=== PATIENT | female | born 1955 | race Native Hawaiian/Other Pacific Islander ===

== ENCOUNTER 2017-08-08 09:42 | Outpatient (CLI) | payer OTHER | END 2017-08-08 19:03 | disposition home or self-care (01) | LOC: MAMMO 09:42 | DX: Z12.31 Encounter for screening mammogram for malignant neoplasm of breast (principal) ==

== ENCOUNTER 2018-02-03 11:45 | Outpatient (CLI) | payer OTHER | END 2018-02-03 23:01 | disposition home or self-care (01) | LOC: RAD 11:45 | DX: M25.552 Pain in left hip (principal); M25.551 Pain in right hip ==

== ENCOUNTER 2018-05-02 09:20 | Outpatient (CLI) | payer OTHER ==
[2018-05-02 10:03] LABS: POTASSIUM 4.2 mmol/L (3.6-5.2)
== END 2018-05-02 22:15 | disposition home or self-care (01) ==
LOC: LABW 09:20
PROVIDERS: Internal Medicine
DX: E78.4 Other hyperlipidemia (principal); D51.8 Other vitamin B12 deficiency anemias; Z79.899 Other long term (current) drug therapy; Z51.81 Encounter for therapeutic drug level monitoring; E88.81 Metabolic syndrome and other insulin resistance
CPT/HCPCS: 36415; 80048; 80061; 82306; 82550; 82607; 82746; 84443

== ENCOUNTER 2018-11-02 11:17 | Outpatient (CLI) | payer OTHER | END 2018-11-02 21:44 | disposition home or self-care (01) | LOC: RAD 11:17 | DX: J40 Bronchitis, not specified as acute or chronic (principal); R05 Cough ==

== ENCOUNTER 2019-02-23 10:32 | Outpatient (CLI) | payer OTHER | END 2019-02-23 19:45 | disposition home or self-care (01) | LOC: MAMMO 10:32 | DX: Z12.31 Encounter for screening mammogram for malignant neoplasm of breast (principal) ==

== ENCOUNTER 2019-03-27 15:31 | Outpatient (CLI) | payer OTHER | END 2019-03-27 21:19 | disposition home or self-care (01) | LOC: RAD 15:31 | DX: Z13.820 Encounter for screening for osteoporosis (principal); N95.8 Other specified menopausal and perimenopausal disorders ==

== ENCOUNTER 2019-07-23 13:17 | Outpatient (CLI) | payer OTHER | END 2019-07-23 22:40 | disposition home or self-care (01) | LOC: CT 13:17 | DX: R10.31 Right lower quadrant pain (principal) | CPT/HCPCS: 36415; 82565; 84520; Q9963 ==

== ENCOUNTER 2019-10-08 11:41 | Observation (INO) | payer OTHER ==
[~2019-10-08] VITALS: Ht 165.1 cm; Wt 99.8 kg
[2019-10-08 11:46] VITALS: BP 160/66
[2019-10-08 12:02] LABS: PLATELET COUNT 260 K/uL (152-353)
[2019-10-08] MEDS ORDERED: ASPIRIN LOW81 MG PO (12:02)
[2019-10-08] MEDS ORDERED: AMLO2.5T PO (12:02)
[2019-10-08] MEDS ORDERED: METO-837 PO (12:02)
[2019-10-08] MEDS ORDERED: METF500T PO (12:03)
[2019-10-08] MEDS ORDERED: PEPCID40 MG PO (12:03)
[2019-10-08] MEDS ORDERED: LIPITOR80 MG PO (12:03)
[2019-10-08] MEDS ORDERED: TRAZODONE HYDRO50 MG PO (12:04)
[2019-10-08 12:08] LABS: POTASSIUM 4.5 mmol/L (3.6-5.2); SODIUM 142 mmol/L (136-145)
[2019-10-08 12:15] LABS: PARTIAL THROMBOPLASTIN TIME 22.4 SECONDS (24.5-33.6)
[2019-10-08 12:30] VITALS: BP 160/99
[2019-10-08 13:00] VITALS: BP 176/89
[2019-10-08 13:30] VITALS: BP 164/79
[2019-10-08 14:00] VITALS: BP 171/80
[2019-10-08 15:10] VITALS: BP 137/70; TEMP 98.1; Ht 165.1 cm; Wt 99.8 kg
== END 2019-10-08 20:14 | disposition short-term general hospital (02) ==
LOC: ED 11:41 → MED/SURG 13:15
PROVIDERS: ADMIT Emergency Medicine Emergency Medical Services
DX: R07.89 Other chest pain (principal); I25.10 Atherosclerotic heart disease of native coronary artery without angina pectoris; I10 Essential (primary) hypertension; E78.00 Pure hypercholesterolemia, unspecified; E11.9 Type 2 diabetes mellitus without complications; K21.9 Gastro-esophageal reflux disease without esophagitis; Z95.1 Presence of aortocoronary bypass graft; I25.2 Old myocardial infarction
CPT/HCPCS: 36415; 80053; 81000; 82550; 84484; 85027; 85379; 85610; 85730; 93005; 96374; 99220; 99284; G0378; J1650; J2270; J2405; J3490

== ENCOUNTER 2019-10-08 19:48 | Outpatient (CLI) | payer OTHER ==
[~2019-10-08 19:48] MED LIST: AMLO2.5T PO; ASPIRIN LOW81 MG PO; LIPITOR80 MG PO; METF500T PO; METO-837 PO; PEPCID40 MG PO; TRAZODONE HYDRO50 MG PO
== END 2019-10-08 20:19 | disposition short-term general hospital (02) ==
LOC: AMB 19:48
DX: R94.31 Abnormal electrocardiogram [ECG] [EKG] (principal); R07.89 Other chest pain
CPT/HCPCS: A0425; A0427

== ENCOUNTER 2019-10-12 11:10 | Outpatient (CLI) | payer OTHER ==
[2019-10-12 11:37] LABS: POTASSIUM 4.5 mmol/L (3.6-5.2)
== END 2019-10-12 22:06 | disposition home or self-care (01) ==
LOC: LABW 11:10
PROVIDERS: Nurse Practitioner Adult Health
DX: I25.10 Atherosclerotic heart disease of native coronary artery without angina pectoris (principal); Z79.899 Other long term (current) drug therapy
CPT/HCPCS: 36415; 80048

== ENCOUNTER 2019-10-23 21:37 | Emergency (ER) | payer OTHER ==
[~2019-10-23] VITALS: Ht 167.6 cm; Wt 99.8 kg
[2019-10-23 21:41] VITALS: TEMP 98.8
[2019-10-23] MEDS ORDERED: COZAAR100 MG PO (21:56)
[2019-10-23] MEDS ORDERED: PANTOPRAZOLE 40MG TA PO (21:56)
[2019-10-23] MEDS ORDERED: CLOP75TA2 PO (21:56)
[2019-10-23 22:18] LABS: PLATELET COUNT 294 K/uL (152-353)
[2019-10-23 22:27] LABS: POTASSIUM 4.2 mmol/L (3.6-5.2); SODIUM 138 mmol/L (136-145)
[2019-10-23 22:39] LABS: PARTIAL THROMBOPLASTIN TIME 22.1 SECONDS (24.5-33.6)
[2019-10-24 00:52] VITALS: BP 121/69
== END 2019-10-24 00:52 | disposition home or self-care (01) ==
LOC: ED 21:37
PROVIDERS: Student in an Organized Health Care Education/Training Program
DX: R07.89 Other chest pain (principal); M54.89 Other dorsalgia; Z98.890 Other specified postprocedural states
CPT/HCPCS: 36415; 80048; 83735; 83880; 84484; 85027; 85610; 85730; 93005; 96374; 96375; 99284; J1885; J2270

== ENCOUNTER 2019-10-24 11:48 | Outpatient (CLI) | payer OTHER ==
[~2019-10-24 11:48] MED LIST changes: +CLOP75TA2 PO; +COZAAR100 MG PO; +PANTOPRAZOLE 40MG TA PO
[2019-10-24 12:14] LABS: POTASSIUM 4.4 mmol/L (3.6-5.2)
[2019-10-24 14:21] LABS: PLATELET COUNT 239 K/uL (152-353)
== END 2019-10-24 21:48 | disposition home or self-care (01) ==
LOC: CT 11:48 → LABW 11:48 → CT 21:48
PROVIDERS: Internal Medicine
DX: R07.89 Other chest pain (principal)
CPT/HCPCS: 36415; 80053; 82150; 83690; 85027; 85651; Q9963

== ENCOUNTER 2019-11-09 08:25 | Outpatient (CLI) | payer OTHER | END 2019-11-09 22:38 | disposition home or self-care (01) | LOC: NM 08:25 | DX: R07.89 Other chest pain (principal) | CPT/HCPCS: A9537 ==

== ENCOUNTER 2020-01-21 18:33 | Emergency (ER) | payer OTHER ==
[~2020-01-21] VITALS: Ht 167.6 cm; Wt 99.8 kg
[2020-01-21 18:35] VITALS: TEMP 98.2
[2020-01-21 21:50] VITALS: BP 148/86
== END 2020-01-21 22:01 | disposition home or self-care (01) ==
LOC: ED 18:33
DX: S39.012A Strain of muscle, fascia and tendon of lower back, initial encounter (principal); V01.00XA Pedestrian on foot injured in collision with pedal cycle in nontraffic accident, initial encounter; Y92.89 Other specified places as the place of occurrence of the external cause
CPT/HCPCS: 96374; 96375; 96376; 99284; J1885; J2270; J2405

== ENCOUNTER 2020-03-26 09:14 | Outpatient (CLI) | payer OTHER | END 2020-03-26 22:22 | disposition home or self-care (01) | LOC: RAD 09:14 | DX: J40 Bronchitis, not specified as acute or chronic (principal) ==

== ENCOUNTER 2020-06-18 13:05 | Outpatient (CLI) | payer OTHER | END 2020-06-18 19:46 | disposition home or self-care (01) | LOC: LAB 13:05 | DX: U07.1 COVID-19 (principal); J40 Bronchitis, not specified as acute or chronic | CPT/HCPCS: 87635; G2023; U0003 ==

== ENCOUNTER 2020-08-26 14:30 | Outpatient (CLI) | payer OTHER ==
[2020-08-26 14:52] LABS: PLATELET COUNT 294 K/uL (152-353)
[2020-08-26 15:15] LABS: POTASSIUM 4.8 mmol/L (3.6-5.2)
== END 2020-08-26 19:14 | disposition home or self-care (01) ==
LOC: LAB 14:30
PROVIDERS: Internal Medicine
DX: Z00.00 Encounter for general adult medical examination without abnormal findings (principal); I25.10 Atherosclerotic heart disease of native coronary artery without angina pectoris; Z79.899 Other long term (current) drug therapy; Z13.820 Encounter for screening for osteoporosis; E55.9 Vitamin D deficiency, unspecified
CPT/HCPCS: 80053; 80061; 81000; 82043; 82306; 82570; 83036; 84439; 84443; 85027

== ENCOUNTER 2020-09-02 09:30 | Outpatient (CLI) | payer OTHER | END 2020-09-02 22:29 | disposition home or self-care (01) | LOC: MAMMO 09:30 | DX: Z12.31 Encounter for screening mammogram for malignant neoplasm of breast (principal) ==

== ENCOUNTER 2021-01-05 08:38 | Outpatient (CLI) | payer OTHER ==
[2021-01-05 09:30] LABS: PLATELET COUNT 247 K/uL (152-353)
[2021-01-05 09:34] LABS: POTASSIUM 4.3 mmol/L (3.6-5.2)
== END 2021-01-05 19:20 | disposition home or self-care (01) ==
LOC: LABW 08:38
PROVIDERS: ATTEND Internal Medicine Endocrinology, Diabetes & Metabolism
DX: E11.65 Type 2 diabetes mellitus with hyperglycemia (principal); E55.9 Vitamin D deficiency, unspecified; E53.8 Deficiency of other specified B group vitamins
CPT/HCPCS: 36415; 80053; 80061; 81000; 82306; 82607; 83036; 85027

== ENCOUNTER 2021-01-22 12:59 | Outpatient (CLI) | payer OTHER ==
[~2021-01-22] VITALS: Ht 170.2 cm; Wt 104.8 kg
== END 2021-01-22 21:46 | disposition home or self-care (01) ==
LOC: DIABINF 12:59
PROVIDERS: ATTEND Internal Medicine Endocrinology, Diabetes & Metabolism
DX: E11.9 Type 2 diabetes mellitus without complications (principal); Z79.4 Long term (current) use of insulin; I25.10 Atherosclerotic heart disease of native coronary artery without angina pectoris; I10 Essential (primary) hypertension; E78.5 Hyperlipidemia, unspecified; K21.9 Gastro-esophageal reflux disease without esophagitis; E53.8 Deficiency of other specified B group vitamins; E66.9 Obesity, unspecified; M19.90 Unspecified osteoarthritis, unspecified site; Z68.30 Body mass index [BMI] 30.0-30.9, adult; H40.89 Other specified glaucoma; E55.9 Vitamin D deficiency, unspecified
CPT/HCPCS: 82948; 96365; 96366; 96521; 99204; J1718; J1815

== ENCOUNTER 2021-01-23 12:22 | Outpatient (CLI) | payer OTHER ==
[~2021-01-23] VITALS: Ht 170.2 cm; Wt 104.8 kg
== END 2021-01-23 21:39 | disposition home or self-care (01) ==
LOC: DIABINF 12:22
PROVIDERS: ATTEND Internal Medicine Endocrinology, Diabetes & Metabolism
DX: E11.9 Type 2 diabetes mellitus without complications (principal); Z79.4 Long term (current) use of insulin; I25.10 Atherosclerotic heart disease of native coronary artery without angina pectoris; I10 Essential (primary) hypertension; E78.5 Hyperlipidemia, unspecified; K21.9 Gastro-esophageal reflux disease without esophagitis; E66.9 Obesity, unspecified; M19.90 Unspecified osteoarthritis, unspecified site; Z68.30 Body mass index [BMI] 30.0-30.9, adult; E55.9 Vitamin D deficiency, unspecified; H40.10X0 Unspecified open-angle glaucoma, stage unspecified
CPT/HCPCS: 82948; 96365; 96366; 96521; 99214; J1718; J1815

== ENCOUNTER 2021-01-29 12:25 | Outpatient (CLI) | payer OTHER ==
[~2021-01-29] VITALS: Ht 170.2 cm; Wt 104.8 kg
== END 2021-01-29 22:12 | disposition home or self-care (01) ==
LOC: DIABINF 12:25
PROVIDERS: ATTEND Internal Medicine Endocrinology, Diabetes & Metabolism
DX: E11.9 Type 2 diabetes mellitus without complications (principal); Z79.4 Long term (current) use of insulin; I25.10 Atherosclerotic heart disease of native coronary artery without angina pectoris; I10 Essential (primary) hypertension; E78.5 Hyperlipidemia, unspecified; K21.9 Gastro-esophageal reflux disease without esophagitis; L40.8 Other psoriasis; E53.8 Deficiency of other specified B group vitamins; E55.9 Vitamin D deficiency, unspecified; Z68.30 Body mass index [BMI] 30.0-30.9, adult; M19.90 Unspecified osteoarthritis, unspecified site
CPT/HCPCS: 82948; 96365; 96366; 96521; 99214; J1718; J1815

== ENCOUNTER 2021-01-30 07:51 | Outpatient (CLI) | payer OTHER ==
[~2021-01-30] VITALS: Ht 170.2 cm; Wt 104.8 kg
== END 2021-01-30 19:08 | disposition home or self-care (01) ==
LOC: DIABINF 07:51
PROVIDERS: ATTEND Internal Medicine Endocrinology, Diabetes & Metabolism
DX: E11.9 Type 2 diabetes mellitus without complications (principal); Z79.4 Long term (current) use of insulin; I25.10 Atherosclerotic heart disease of native coronary artery without angina pectoris; I10 Essential (primary) hypertension; E78.5 Hyperlipidemia, unspecified; K21.9 Gastro-esophageal reflux disease without esophagitis; L40.8 Other psoriasis; E53.8 Deficiency of other specified B group vitamins; E55.9 Vitamin D deficiency, unspecified; Z68.30 Body mass index [BMI] 30.0-30.9, adult; M19.90 Unspecified osteoarthritis, unspecified site; R21 Rash and other nonspecific skin eruption
CPT/HCPCS: 82948; 96365; 96366; 96521; 99214; J1718; J1815

== ENCOUNTER 2021-02-05 07:52 | Outpatient (CLI) | payer OTHER ==
[~2021-02-05] VITALS: Ht 170.2 cm; Wt 104.8 kg
== END 2021-02-05 19:29 | disposition home or self-care (01) ==
LOC: DIABINF 07:52
PROVIDERS: ATTEND Internal Medicine Endocrinology, Diabetes & Metabolism
DX: E11.9 Type 2 diabetes mellitus without complications (principal); Z79.4 Long term (current) use of insulin; E78.2 Mixed hyperlipidemia; H40.10X0 Unspecified open-angle glaucoma, stage unspecified; K21.9 Gastro-esophageal reflux disease without esophagitis; L40.8 Other psoriasis; I10 Essential (primary) hypertension; I25.10 Atherosclerotic heart disease of native coronary artery without angina pectoris; E55.9 Vitamin D deficiency, unspecified; E53.8 Deficiency of other specified B group vitamins; M19.09 Primary osteoarthritis, other specified site; E66.8 Other obesity; Z68.39 Body mass index [BMI] 39.0-39.9, adult; R21 Rash and other nonspecific skin eruption
CPT/HCPCS: 82948; 96365; 96366; 96521; 99214; J1718; J1815

== ENCOUNTER 2021-02-06 11:43 | Outpatient (CLI) | payer OTHER | END 2021-02-06 21:48 | disposition home or self-care (01) | LOC: LAB 11:43 → CT 11:43 | PROVIDERS: ATTEND Internal Medicine | DX: R31.9 Hematuria, unspecified (principal); R82.81 Pyuria | CPT/HCPCS: 87077; 87086; 87088; 87186 ==

== ENCOUNTER 2021-02-06 11:56 | Outpatient (CLI) | payer OTHER ==
[~2021-02-06] VITALS: Ht 170.2 cm; Wt 104.8 kg
== END 2021-02-06 21:48 | disposition home or self-care (01) ==
LOC: DIABINF 11:56
PROVIDERS: ATTEND Internal Medicine Endocrinology, Diabetes & Metabolism
DX: E11.9 Type 2 diabetes mellitus without complications (principal); Z79.4 Long term (current) use of insulin; E78.2 Mixed hyperlipidemia; H40.10X0 Unspecified open-angle glaucoma, stage unspecified; K21.9 Gastro-esophageal reflux disease without esophagitis; L40.8 Other psoriasis; I10 Essential (primary) hypertension; I25.10 Atherosclerotic heart disease of native coronary artery without angina pectoris; I65.29 Occlusion and stenosis of unspecified carotid artery; E55.9 Vitamin D deficiency, unspecified; E53.8 Deficiency of other specified B group vitamins; M19.09 Primary osteoarthritis, other specified site; E66.8 Other obesity; Z68.39 Body mass index [BMI] 39.0-39.9, adult; N30.01 Acute cystitis with hematuria
CPT/HCPCS: 82948; 96365; 96366; 96521; 99214; J1718; J1815

== ENCOUNTER 2021-02-13 12:07 | Outpatient (CLI) | payer OTHER ==
[~2021-02-13] VITALS: Ht 170.2 cm; Wt 104.8 kg
== END 2021-02-13 19:25 | disposition home or self-care (01) ==
LOC: DIABINF 12:07
PROVIDERS: ATTEND Internal Medicine Endocrinology, Diabetes & Metabolism
DX: E11.9 Type 2 diabetes mellitus without complications (principal); Z79.4 Long term (current) use of insulin; E78.2 Mixed hyperlipidemia; H40.10X0 Unspecified open-angle glaucoma, stage unspecified; K21.9 Gastro-esophageal reflux disease without esophagitis; L40.8 Other psoriasis; I10 Essential (primary) hypertension; I25.10 Atherosclerotic heart disease of native coronary artery without angina pectoris; E55.9 Vitamin D deficiency, unspecified; E53.8 Deficiency of other specified B group vitamins; M15.0 Primary generalized (osteo)arthritis; E66.8 Other obesity; Z68.39 Body mass index [BMI] 39.0-39.9, adult; R21 Rash and other nonspecific skin eruption; I65.29 Occlusion and stenosis of unspecified carotid artery
CPT/HCPCS: 82948; 96365; 96366; 96521; 99214; J1718; J1815

== ENCOUNTER 2021-02-17 12:11 | Outpatient (CLI) | payer OTHER ==
[~2021-02-17] VITALS: Ht 170.2 cm; Wt 104.8 kg
== END 2021-02-17 19:16 | disposition home or self-care (01) ==
LOC: DIABINF 12:11
PROVIDERS: ATTEND Internal Medicine Endocrinology, Diabetes & Metabolism
DX: E11.9 Type 2 diabetes mellitus without complications (principal); Z79.4 Long term (current) use of insulin; E78.2 Mixed hyperlipidemia; H40.10X0 Unspecified open-angle glaucoma, stage unspecified; K21.9 Gastro-esophageal reflux disease without esophagitis; L40.8 Other psoriasis; I10 Essential (primary) hypertension; I25.10 Atherosclerotic heart disease of native coronary artery without angina pectoris; E55.9 Vitamin D deficiency, unspecified; E53.8 Deficiency of other specified B group vitamins; M15.0 Primary generalized (osteo)arthritis; E66.8 Other obesity; Z68.39 Body mass index [BMI] 39.0-39.9, adult; R21 Rash and other nonspecific skin eruption; I65.29 Occlusion and stenosis of unspecified carotid artery
CPT/HCPCS: 82948; 96365; 96366; 96521; 99214; J1718; J1815

== ENCOUNTER 2021-02-23 13:20 | Outpatient (CLI) | payer OTHER | END 2021-02-23 20:51 | disposition home or self-care (01) | LOC: DIABINF 13:20 | PROVIDERS: ATTEND Internal Medicine Endocrinology, Diabetes & Metabolism | DX: E11.9 Type 2 diabetes mellitus without complications (principal); Z79.4 Long term (current) use of insulin; E78.2 Mixed hyperlipidemia; H40.10X0 Unspecified open-angle glaucoma, stage unspecified; K21.9 Gastro-esophageal reflux disease without esophagitis; L40.8 Other psoriasis; I10 Essential (primary) hypertension; I25.10 Atherosclerotic heart disease of native coronary artery without angina pectoris; E55.9 Vitamin D deficiency, unspecified; E53.8 Deficiency of other specified B group vitamins; M15.0 Primary generalized (osteo)arthritis; E66.8 Other obesity; Z68.39 Body mass index [BMI] 39.0-39.9, adult; R21 Rash and other nonspecific skin eruption; I65.29 Occlusion and stenosis of unspecified carotid artery | CPT/HCPCS: 82948; 96365; 96366; 96521; 99214; J1718 ==

== ENCOUNTER 2021-03-20 07:36 | Outpatient (CLI) | payer OTHER ==
[~2021-03-20] VITALS: Ht 170.2 cm; Wt 104.8 kg
== END 2021-03-20 21:46 | disposition home or self-care (01) ==
LOC: DIABINF 07:36
PROVIDERS: ATTEND Internal Medicine Endocrinology, Diabetes & Metabolism
DX: E11.9 Type 2 diabetes mellitus without complications (principal); Z79.4 Long term (current) use of insulin; E78.2 Mixed hyperlipidemia; H40.10X0 Unspecified open-angle glaucoma, stage unspecified; K21.9 Gastro-esophageal reflux disease without esophagitis; L40.8 Other psoriasis; I10 Essential (primary) hypertension; I25.10 Atherosclerotic heart disease of native coronary artery without angina pectoris; E55.9 Vitamin D deficiency, unspecified; E53.8 Deficiency of other specified B group vitamins; M15.0 Primary generalized (osteo)arthritis; E66.8 Other obesity; Z68.39 Body mass index [BMI] 39.0-39.9, adult; R21 Rash and other nonspecific skin eruption; I65.29 Occlusion and stenosis of unspecified carotid artery
CPT/HCPCS: 82948; 96365; 96366; 96521; J1815; J1817

== ENCOUNTER 2021-03-23 12:50 | Outpatient (CLI) | payer OTHER ==
[2021-03-23 13:33] LABS: POTASSIUM 5.2 mmol/L (3.6-5.2)
[2021-03-23 13:37] LABS: PLATELET COUNT 241 K/uL (152-353)
== END 2021-03-23 23:42 | disposition home or self-care (01) ==
LOC: LAB 12:50
PROVIDERS: ATTEND Internal Medicine Endocrinology, Diabetes & Metabolism
DX: E11.9 Type 2 diabetes mellitus without complications (principal); I25.10 Atherosclerotic heart disease of native coronary artery without angina pectoris; K21.9 Gastro-esophageal reflux disease without esophagitis; E55.9 Vitamin D deficiency, unspecified; I10 Essential (primary) hypertension; F51.01 Primary insomnia; E53.8 Deficiency of other specified B group vitamins; F41.8 Other specified anxiety disorders
CPT/HCPCS: 80053; 80061; 83036; 85027

== ENCOUNTER 2021-03-27 07:50 | Outpatient (CLI) | payer OTHER | END 2021-03-27 22:37 | disposition home or self-care (01) | LOC: DIABINF 07:50 | PROVIDERS: ATTEND Internal Medicine Endocrinology, Diabetes & Metabolism | DX: E11.9 Type 2 diabetes mellitus without complications (principal); Z79.4 Long term (current) use of insulin; E78.2 Mixed hyperlipidemia; H40.10X0 Unspecified open-angle glaucoma, stage unspecified; K21.9 Gastro-esophageal reflux disease without esophagitis; L40.8 Other psoriasis; I10 Essential (primary) hypertension; I25.10 Atherosclerotic heart disease of native coronary artery without angina pectoris; E55.9 Vitamin D deficiency, unspecified; E53.8 Deficiency of other specified B group vitamins; M15.0 Primary generalized (osteo)arthritis; E66.8 Other obesity; Z68.39 Body mass index [BMI] 39.0-39.9, adult; R21 Rash and other nonspecific skin eruption; I65.29 Occlusion and stenosis of unspecified carotid artery | CPT/HCPCS: 82948; 96365; 96366; 96521; J1817 ==

== ENCOUNTER 2021-04-03 08:04 | Outpatient (CLI) | payer OTHER ==
[~2021-04-03] VITALS: Ht 170.2 cm; Wt 104.8 kg
== END 2021-04-03 22:16 | disposition home or self-care (01) ==
LOC: DIABINF 08:04
PROVIDERS: ATTEND Internal Medicine Endocrinology, Diabetes & Metabolism
DX: E11.9 Type 2 diabetes mellitus without complications (principal); Z79.4 Long term (current) use of insulin; E78.2 Mixed hyperlipidemia; H40.10X0 Unspecified open-angle glaucoma, stage unspecified; K21.9 Gastro-esophageal reflux disease without esophagitis; L40.8 Other psoriasis; I10 Essential (primary) hypertension; I25.10 Atherosclerotic heart disease of native coronary artery without angina pectoris; E55.9 Vitamin D deficiency, unspecified; E53.8 Deficiency of other specified B group vitamins; M15.0 Primary generalized (osteo)arthritis; E66.8 Other obesity; Z68.39 Body mass index [BMI] 39.0-39.9, adult; R21 Rash and other nonspecific skin eruption; I65.29 Occlusion and stenosis of unspecified carotid artery
CPT/HCPCS: 82948; 96365; 96366; 96521; J1815; J1817

== ENCOUNTER 2021-04-10 07:51 | Outpatient (CLI) | payer OTHER ==
[~2021-04-10] VITALS: Ht 170.2 cm; Wt 104.8 kg
== END 2021-04-10 22:42 | disposition home or self-care (01) ==
LOC: DIABINF 07:51
PROVIDERS: ATTEND Internal Medicine Endocrinology, Diabetes & Metabolism
DX: E11.9 Type 2 diabetes mellitus without complications (principal); Z79.4 Long term (current) use of insulin; E78.2 Mixed hyperlipidemia; H40.10X0 Unspecified open-angle glaucoma, stage unspecified; K21.9 Gastro-esophageal reflux disease without esophagitis; L40.8 Other psoriasis; I10 Essential (primary) hypertension; I25.10 Atherosclerotic heart disease of native coronary artery without angina pectoris; E55.9 Vitamin D deficiency, unspecified; E53.8 Deficiency of other specified B group vitamins; M15.0 Primary generalized (osteo)arthritis; E66.8 Other obesity; Z68.39 Body mass index [BMI] 39.0-39.9, adult; R21 Rash and other nonspecific skin eruption; I65.29 Occlusion and stenosis of unspecified carotid artery
CPT/HCPCS: 82948; 96365; 96366; 96521; J1815; J1817

== ENCOUNTER 2021-04-17 12:56 | Outpatient (CLI) | payer OTHER ==
[~2021-04-17] VITALS: Ht 170.2 cm; Wt 104.8 kg
== END 2021-04-17 20:10 | disposition home or self-care (01) ==
LOC: DIABINF 12:56
PROVIDERS: ATTEND Internal Medicine Endocrinology, Diabetes & Metabolism
DX: E11.9 Type 2 diabetes mellitus without complications (principal); Z79.4 Long term (current) use of insulin; E78.2 Mixed hyperlipidemia; H40.10X0 Unspecified open-angle glaucoma, stage unspecified; K21.9 Gastro-esophageal reflux disease without esophagitis; L40.8 Other psoriasis; I10 Essential (primary) hypertension; I25.10 Atherosclerotic heart disease of native coronary artery without angina pectoris; E55.9 Vitamin D deficiency, unspecified; E53.8 Deficiency of other specified B group vitamins; M15.0 Primary generalized (osteo)arthritis; E66.8 Other obesity; Z68.39 Body mass index [BMI] 39.0-39.9, adult; R21 Rash and other nonspecific skin eruption; I65.29 Occlusion and stenosis of unspecified carotid artery
CPT/HCPCS: 82948; 96365; 96366; 96521; J1815; J1817

== ENCOUNTER 2021-04-24 12:34 | Outpatient (CLI) | payer OTHER ==
[~2021-04-24] VITALS: Ht 170.2 cm; Wt 104.8 kg
== END 2021-04-24 19:20 | disposition home or self-care (01) ==
LOC: DIABINF 12:34
PROVIDERS: ATTEND Internal Medicine Endocrinology, Diabetes & Metabolism
DX: E11.9 Type 2 diabetes mellitus without complications (principal); Z79.4 Long term (current) use of insulin; E78.2 Mixed hyperlipidemia; H40.10X0 Unspecified open-angle glaucoma, stage unspecified; K21.9 Gastro-esophageal reflux disease without esophagitis; L40.8 Other psoriasis; I10 Essential (primary) hypertension; I25.10 Atherosclerotic heart disease of native coronary artery without angina pectoris; E55.9 Vitamin D deficiency, unspecified; E53.8 Deficiency of other specified B group vitamins; M15.0 Primary generalized (osteo)arthritis; E66.8 Other obesity; Z68.39 Body mass index [BMI] 39.0-39.9, adult; R21 Rash and other nonspecific skin eruption; I65.29 Occlusion and stenosis of unspecified carotid artery
CPT/HCPCS: 82948; 96365; 96366; 96521; J1815; J1817

== ENCOUNTER 2021-05-01 12:22 | Outpatient (CLI) | payer OTHER ==
[~2021-05-01] VITALS: Ht 170.2 cm; Wt 104.8 kg
== END 2021-05-01 16:00 | disposition home or self-care (01) ==
LOC: DIABINF 12:22
PROVIDERS: ATTEND Internal Medicine Endocrinology, Diabetes & Metabolism
DX: E11.65 Type 2 diabetes mellitus with hyperglycemia (principal); E55.9 Vitamin D deficiency, unspecified; E78.2 Mixed hyperlipidemia; I10 Essential (primary) hypertension; H40.10X0 Unspecified open-angle glaucoma, stage unspecified; K21.9 Gastro-esophageal reflux disease without esophagitis; L40.8 Other psoriasis; I25.10 Atherosclerotic heart disease of native coronary artery without angina pectoris; M15.0 Primary generalized (osteo)arthritis; E66.8 Other obesity; Z68.34 Body mass index [BMI] 34.0-34.9, adult
CPT/HCPCS: 82948; 96365; 96366; 96521; J1815; J1817

== ENCOUNTER 2021-05-08 12:50 | Outpatient (CLI) | payer OTHER ==
[~2021-05-08] VITALS: Ht 170.2 cm; Wt 104.8 kg
== END 2021-05-08 16:00 | disposition home or self-care (01) ==
LOC: DIABINF 12:50
PROVIDERS: ATTEND Nurse Practitioner
DX: E11.9 Type 2 diabetes mellitus without complications (principal); Z79.4 Long term (current) use of insulin; H40.9 Unspecified glaucoma; I10 Essential (primary) hypertension; E78.2 Mixed hyperlipidemia; K76.0 Fatty (change of) liver, not elsewhere classified; E55.9 Vitamin D deficiency, unspecified; M19.09 Primary osteoarthritis, other specified site; I25.10 Atherosclerotic heart disease of native coronary artery without angina pectoris
CPT/HCPCS: 82948; 96365; 96366; 96521; J1815; J1817

== ENCOUNTER 2021-05-15 12:38 | Outpatient (CLI) | payer OTHER ==
[~2021-05-15] VITALS: Ht 170.2 cm; Wt 104.8 kg
== END 2021-05-15 23:00 | disposition home or self-care (01) ==
LOC: DIABINF 12:38
PROVIDERS: ATTEND Internal Medicine Endocrinology, Diabetes & Metabolism
DX: E11.9 Type 2 diabetes mellitus without complications (principal); Z79.4 Long term (current) use of insulin; H40.10X0 Unspecified open-angle glaucoma, stage unspecified; K21.9 Gastro-esophageal reflux disease without esophagitis; L40.8 Other psoriasis; I10 Essential (primary) hypertension; I25.10 Atherosclerotic heart disease of native coronary artery without angina pectoris; E55.9 Vitamin D deficiency, unspecified; E53.8 Deficiency of other specified B group vitamins; M15.0 Primary generalized (osteo)arthritis; E66.8 Other obesity; Z68.39 Body mass index [BMI] 39.0-39.9, adult; R21 Rash and other nonspecific skin eruption; I65.29 Occlusion and stenosis of unspecified carotid artery
CPT/HCPCS: 82948; 96365; 96366; 96521; J1815; J1817

== ENCOUNTER 2021-05-22 12:40 | Outpatient (CLI) | payer OTHER ==
[~2021-05-22] VITALS: Ht 170.2 cm; Wt 104.8 kg
== END 2021-05-22 22:06 | disposition home or self-care (01) ==
LOC: DIABINF 12:40
PROVIDERS: ATTEND Internal Medicine Endocrinology, Diabetes & Metabolism
DX: E11.9 Type 2 diabetes mellitus without complications (principal); Z79.4 Long term (current) use of insulin; H40.10X0 Unspecified open-angle glaucoma, stage unspecified; K21.9 Gastro-esophageal reflux disease without esophagitis; L40.8 Other psoriasis; I10 Essential (primary) hypertension; I25.10 Atherosclerotic heart disease of native coronary artery without angina pectoris; E55.9 Vitamin D deficiency, unspecified; E53.8 Deficiency of other specified B group vitamins; M15.0 Primary generalized (osteo)arthritis; E66.8 Other obesity; Z68.39 Body mass index [BMI] 39.0-39.9, adult; R21 Rash and other nonspecific skin eruption; I65.29 Occlusion and stenosis of unspecified carotid artery
CPT/HCPCS: 82948; 96365; 96366; 96521; J1815; J1817

== ENCOUNTER 2021-05-29 12:26 | Outpatient (CLI) | payer OTHER ==
[~2021-05-29] VITALS: Ht 170.2 cm; Wt 104.8 kg
== END 2021-05-29 22:52 | disposition home or self-care (01) ==
LOC: DIABINF 12:26
PROVIDERS: ATTEND Nurse Practitioner
DX: E11.9 Type 2 diabetes mellitus without complications (principal); Z79.4 Long term (current) use of insulin; H40.10X0 Unspecified open-angle glaucoma, stage unspecified; K21.9 Gastro-esophageal reflux disease without esophagitis; L40.8 Other psoriasis; I10 Essential (primary) hypertension; I25.10 Atherosclerotic heart disease of native coronary artery without angina pectoris; E55.9 Vitamin D deficiency, unspecified; E53.8 Deficiency of other specified B group vitamins; M15.0 Primary generalized (osteo)arthritis; E66.8 Other obesity; Z68.39 Body mass index [BMI] 39.0-39.9, adult; R21 Rash and other nonspecific skin eruption; I65.29 Occlusion and stenosis of unspecified carotid artery
CPT/HCPCS: 82948; 96365; 96366; 96521; J1815; J1817

== ENCOUNTER 2021-06-05 12:56 | Outpatient (CLI) | payer OTHER ==
[~2021-06-05] VITALS: Ht 170.2 cm; Wt 104.8 kg
== END 2021-06-05 19:10 | disposition home or self-care (01) ==
LOC: DIABINF 12:56
PROVIDERS: ATTEND Nurse Practitioner
DX: E11.9 Type 2 diabetes mellitus without complications (principal); Z79.4 Long term (current) use of insulin; E78.2 Mixed hyperlipidemia; H40.10X0 Unspecified open-angle glaucoma, stage unspecified; K21.9 Gastro-esophageal reflux disease without esophagitis; L40.8 Other psoriasis; I10 Essential (primary) hypertension; I25.10 Atherosclerotic heart disease of native coronary artery without angina pectoris; E55.9 Vitamin D deficiency, unspecified; E53.8 Deficiency of other specified B group vitamins; M15.0 Primary generalized (osteo)arthritis; E66.8 Other obesity; Z68.39 Body mass index [BMI] 39.0-39.9, adult; R21 Rash and other nonspecific skin eruption; I65.29 Occlusion and stenosis of unspecified carotid artery
CPT/HCPCS: 82948; 96365; 96366; 96521; J1815; J1817

== ENCOUNTER 2021-06-12 12:39 | Outpatient (CLI) | payer OTHER ==
[~2021-06-12] VITALS: Ht 170.2 cm; Wt 104.8 kg
== END 2021-06-12 22:38 | disposition home or self-care (01) ==
LOC: DIABINF 12:39
PROVIDERS: ATTEND Nurse Practitioner
DX: E11.9 Type 2 diabetes mellitus without complications (principal); Z79.4 Long term (current) use of insulin; E78.2 Mixed hyperlipidemia; H40.10X0 Unspecified open-angle glaucoma, stage unspecified; K21.9 Gastro-esophageal reflux disease without esophagitis; L40.8 Other psoriasis; I10 Essential (primary) hypertension; I25.10 Atherosclerotic heart disease of native coronary artery without angina pectoris; E55.9 Vitamin D deficiency, unspecified; E53.8 Deficiency of other specified B group vitamins; M15.0 Primary generalized (osteo)arthritis; E66.8 Other obesity; Z68.39 Body mass index [BMI] 39.0-39.9, adult; R21 Rash and other nonspecific skin eruption; I65.29 Occlusion and stenosis of unspecified carotid artery
CPT/HCPCS: 82948; 96365; 96366; 96521; J1815; J1817

== ENCOUNTER 2021-06-19 12:43 | Outpatient (CLI) | payer OTHER ==
[~2021-06-19] VITALS: Ht 170.2 cm; Wt 104.8 kg
== END 2021-06-19 20:00 | disposition home or self-care (01) ==
LOC: DIABINF 12:43
PROVIDERS: ATTEND Nurse Practitioner
DX: E11.9 Type 2 diabetes mellitus without complications (principal); Z79.4 Long term (current) use of insulin; H40.89 Other specified glaucoma; I10 Essential (primary) hypertension; E78.2 Mixed hyperlipidemia; K76.0 Fatty (change of) liver, not elsewhere classified; E55.9 Vitamin D deficiency, unspecified; M19.09 Primary osteoarthritis, other specified site; I25.10 Atherosclerotic heart disease of native coronary artery without angina pectoris
CPT/HCPCS: 82948; 96365; 96366; 96521; J1815; J1817

== ENCOUNTER 2021-06-26 11:18 | Outpatient (CLI) | payer OTHER ==
[~2021-06-26] VITALS: Ht 170.2 cm; Wt 104.8 kg
== END 2021-06-26 23:09 | disposition home or self-care (01) ==
LOC: DIABINF 11:18
PROVIDERS: ATTEND Nurse Practitioner
DX: E11.9 Type 2 diabetes mellitus without complications (principal); Z79.4 Long term (current) use of insulin; H40.89 Other specified glaucoma; I10 Essential (primary) hypertension; E78.2 Mixed hyperlipidemia; K76.0 Fatty (change of) liver, not elsewhere classified; E55.9 Vitamin D deficiency, unspecified; M19.09 Primary osteoarthritis, other specified site; I25.10 Atherosclerotic heart disease of native coronary artery without angina pectoris
CPT/HCPCS: 82948; 96365; 96366; 96521; J1815; J1817

== ENCOUNTER 2021-07-03 12:27 | Outpatient (CLI) | payer OTHER ==
[~2021-07-03] VITALS: Ht 170.2 cm; Wt 104.8 kg
== END 2021-07-03 19:07 | disposition home or self-care (01) ==
LOC: DIABINF 12:27
PROVIDERS: ATTEND Nurse Practitioner
DX: E11.9 Type 2 diabetes mellitus without complications (principal); Z79.4 Long term (current) use of insulin; H40.89 Other specified glaucoma; I10 Essential (primary) hypertension; E78.2 Mixed hyperlipidemia; K76.0 Fatty (change of) liver, not elsewhere classified; E55.9 Vitamin D deficiency, unspecified; M19.09 Primary osteoarthritis, other specified site; I25.10 Atherosclerotic heart disease of native coronary artery without angina pectoris
CPT/HCPCS: 82948; 96365; 96366; 96521; J1815; J1817

== ENCOUNTER 2021-07-10 12:42 | Outpatient (CLI) | payer OTHER ==
[~2021-07-10] VITALS: Ht 170.2 cm; Wt 90.3 kg
== END 2021-07-10 22:02 | disposition home or self-care (01) ==
LOC: DIABINF 12:42
PROVIDERS: ATTEND Nurse Practitioner
DX: E11.9 Type 2 diabetes mellitus without complications (principal); Z79.4 Long term (current) use of insulin; H40.89 Other specified glaucoma; I10 Essential (primary) hypertension; E78.2 Mixed hyperlipidemia; K76.0 Fatty (change of) liver, not elsewhere classified; E55.9 Vitamin D deficiency, unspecified; M19.09 Primary osteoarthritis, other specified site; I25.10 Atherosclerotic heart disease of native coronary artery without angina pectoris
CPT/HCPCS: 82948; 96365; 96366; 96521; J1815; J1817

== ENCOUNTER 2021-07-17 12:50 | Outpatient (CLI) | payer OTHER | END 2021-07-17 19:35 | disposition home or self-care (01) | LOC: DIABINF 12:50 | PROVIDERS: ATTEND Nurse Practitioner | DX: E11.9 Type 2 diabetes mellitus without complications (principal); Z79.4 Long term (current) use of insulin; H40.89 Other specified glaucoma; I10 Essential (primary) hypertension; E78.2 Mixed hyperlipidemia; K76.0 Fatty (change of) liver, not elsewhere classified; E55.9 Vitamin D deficiency, unspecified; M19.09 Primary osteoarthritis, other specified site; I25.10 Atherosclerotic heart disease of native coronary artery without angina pectoris | CPT/HCPCS: 82948; 96365; 96366; 96521; J1817 ==

== ENCOUNTER 2021-09-15 14:31 | Outpatient (CLI) | payer OTHER | END 2021-09-15 21:22 | disposition home or self-care (01) | LOC: MAMMO 14:31 | PROVIDERS: ATTEND Internal Medicine | DX: Z12.31 Encounter for screening mammogram for malignant neoplasm of breast (principal) ==

== ENCOUNTER 2021-10-29 12:18 | Outpatient (CLI) | payer OTHER ==
[2021-10-29 13:24] LABS: POTASSIUM 4.2 mmol/L (3.6-5.2)
== END 2021-10-29 19:27 | disposition home or self-care (01) ==
LOC: LABW 12:18
PROVIDERS: ATTEND Specialist
DX: R35.89 Other polyuria (principal); Z79.899 Other long term (current) drug therapy
CPT/HCPCS: 36415; 80048

== ENCOUNTER 2022-03-03 11:03 | Outpatient (CLI) | payer OTHER | END 2022-03-03 19:17 | disposition home or self-care (01) | LOC: RAD 11:03 | PROVIDERS: ATTEND Internal Medicine | DX: J40 Bronchitis, not specified as acute or chronic (principal) ==

== ENCOUNTER 2023-03-25 10:59 | Outpatient (CLI) | payer OTHER | END 2023-03-25 17:00 | disposition home or self-care (01) | LOC: RAD 10:59 | PROVIDERS: ATTEND Internal Medicine | DX: M25.562 Pain in left knee (principal) ==

== ENCOUNTER 2023-09-05 08:55 | Outpatient (CLI) | payer OTHER | END 2023-09-05 18:52 | disposition home or self-care (01) | LOC: RESP 08:55 | PROVIDERS: ATTEND Nurse Practitioner | DX: I25.10 Atherosclerotic heart disease of native coronary artery without angina pectoris (principal) ==